=== PATIENT | female | born 1980 | race Caucasian/White ===

== ENCOUNTER 2020-03-02 19:49 | Observation (INO) | payer MEDICARE ==
[2020-03-02] MEDS ORDERED: SODIUM CHLORIDE 0.9% 1,000 ML IV STA (20:14)
--- NOTE | 2020-03-02 20:17 | ED ---
Alcohol HPI - General Chief Complaint: Alcohol Stated Complaint: ETOH Time Seen by Provider: 03/02/20 20:02 Source: patient, family Mode of arrival: ambulatory Limitations: no limitations - History of Present Illness Initial Comments: This a 39-year-old female presents emergency Department with significant other for evaluation of alcohol abuse. Patient states that she's been drinking at least 4 pints a day for last 10 days. Patient states that she has tried to help in the past but has relapsed. Patient states she is looking for help. Patient denies any complaints or homicidal. Patient denies any complaints of abdominal pain. She does admit that she has withdrawal symptoms daily when she does not drink. She has to take 5-10 times a day to help stop her shaking. Patient denies any current nausea vomiting. Patient states that she has drank heavily today and she only continues throughout the night. Patient denies any dysuria hematuria denies any chest pain, shortness breath, fever or chills. - Related Data Allergies Allergy/AdvReac Type Severity Reaction Status Date / Time Penicillins Allergy Rash/Hives Verified 03/02/20 20:01 Review of Systems ROS Statement: Those systems with pertinent positive or pertinent negative responses have been documented in the HPI. ROS Other: All systems not noted in ROS Statement are negative. Past Medical History Past Medical History: No Reported History History of Any Multi-Drug Resistant Organisms: None Reported Past Surgical History: No Surgical Hx Reported Past Psychological History: Anxiety, Bipolar, Depression Smoking Status: Current every day smoker Past Alcohol Use History: Abuse, Daily, Heavy Past Drug Use History: None Reported General Exam Limitations: no limitations General appearance: alert, in no apparent distress, appears intoxicated Head exam: Present: atraumatic, normocephalic, normal inspection Eye exam: Present: normal appearance, PERRL, EOMI. Absent: scleral icterus, conjunctival injection, periorbital swelling ENT exam: Present: normal exam, normal oropharynx, mucous membranes moist Neck exam: Present: normal inspection, full ROM. Absent: tenderness, meningismus, lymphadenopathy Respiratory exam: Present: normal lung sounds bilaterally. Absent: respiratory distress, wheezes, rales, rhonchi, stridor Cardiovascular Exam: Present: normal rhythm, tachycardia, normal heart sounds. Absent: systolic murmur, diastolic murmur, rubs, gallop, clicks GI/Abdominal exam: Present: soft, normal bowel sounds. Absent: distended, tenderness, guarding, rebound, rigid Neurological exam: Present: alert, oriented X3, CN II-XII intact Skin exam: Present: warm, dry, intact, normal color. Absent: rash Course Vital Signs 03/02/20 19:57 Temperature 99.0 F Pulse Rate 121 H Respiratory 16 Rate Blood Pressure 139/88 O2 Sat by Pulse 96 Oximetry Medical Decision Making - Medical Decision Making 39-year-old female presented for alcohol abuse. Patient has acute alcohol intoxication with alcohol level over 350. Patient will be referred alcohol abuse, alcohol withdrawal on Ativan and CIWA - Lab Data Result diagrams: 03/02/20 20:34 03/02/20 20:34 Lab Results 03/02/20 03/02/20 03/02/20 Range/Units 20:34 20:34 20:34 WBC 5.9 (3.8-10.6) k/uL RBC 4.26 (3.80-5.40) m/uL Hgb 13.6 (11.4-16.0) gm/dL Hct 41.3 (34.0-46.0) % MCV 96.9 (80.0-100.0) fL MCH 31.8 (25.0-35.0) pg MCHC 32.8 (31.0-37.0) g/dL RDW 14.0 (11.5-15.5) % Plt Count 137 L (150-450) k/uL Neutrophils % 38 % Lymphocytes % 47 % Monocytes % 5 % Eosinophils % 6 % Basophils % 2 % Neutrophils # 2.3 (1.3-7.7) k/uL Lymphocytes # 2.8 (1.0-4.8) k/uL Monocytes # 0.3 (0-1.0) k/uL Eosinophils # 0.4 (0-0.7) k/uL Basophils # 0.1 (0-0.2) k/uL Sodium 143 (137-145) mmol/L Potassium 3.8 (3.5-5.1) mmol/L Chloride 110 H (98-107) mmol/L Carbon Dioxide 21 L (22-30) mmol/L Anion Gap 12 mmol/L BUN 7 (7-17) mg/dL Creatinine 0.75 (0.52-1.04) mg/dL Est GFR (CKD-EPI)AfAm >90 (>60 ml/min/1.73 sqM) Est GFR (CKD-EPI)NonAf >90 (>60 ml/min/1.73 sqM) Glucose 104 H (74-99) mg/dL Calcium 8.7 (8.4-10.2) mg/dL Magnesium 2.2 (1.6-2.3) mg/dL Total Bilirubin 0.3 (0.2-1.3) mg/dL AST 222 H (14-36) U/L ALT 234 H (4-34) U/L Alkaline Phosphatase 77 (38-126) U/L Total Protein 7.2 (6.3-8.2) g/dL Albumin 4.3 (3.5-5.0) g/dL Lipase 177 (23-300) U/L Urine Color Light Yellow Urine Appearance Cloudy H (Clear) Urine pH 7.0 (5.0-8.0) Ur Specific [place] 1.004 (1.001-1.035) Urine Protein Negative (Negative) Urine Glucose (UA) Negative (Negative) Urine Ketones Negative (Negative) Urine Blood Negative (Negative) Urine Nitrite Negative (Negative) Urine Bilirubin Negative (Negative) Urine Urobilinogen <2.0 (<2.0) mg/dL Ur Leukocyte Esterase Negative (Negative) Urine RBC 1 (0-5) /hpf Urine WBC 1 (0-5) /hpf Ur Squamous Epith Cells 2 (0-4) /hpf Amorphous Sediment Rare H (None) /hpf Urine Bacteria Occasional H (None) /hpf Urine Mucus Rare H (None) /hpf Serum Alcohol 382 H* mg/dL Disposition Clinical Impression: Alcoholic hepatitis, Alcoholic intoxication, Alcohol withdrawal syndrome Disposition: ADMITTED IP TO THIS [facility] Condition: Serious Referrals: Kristi Goodwin DO [Primary Care Provider] - 1-2 days
[2020-03-02] MEDS ORDERED: THIAMINE 200 MG in SODIUM CHLORIDE 0.9% 100 ML IVPB STA (20:19)
[2020-03-02 20:50] LABS: Basophils # (A) 0.1 k/uL (0-0.2); Basophils % (A) 2 %; Eosinophils # (A) 0.4 k/uL (0-0.7); Eosinophils % (A) 6 %; HCT 41.3 % (34.0-46.0); HGB 13.6 gm/dL (11.4-16.0); Lymphocytes # (A) 2.8 k/uL (1.0-4.8); Lymphocytes % (A) 47 %; MCH 31.8 pg (25.0-35.0); MCHC 32.8 g/dL (31.0-37.0); MCV 96.9 fL (80.0-100.0); Mean Platelet Volume 8.6; Monocytes # (A) 0.3 k/uL (0-1.0); Monocytes % (A) 5 %; Neutrophils # (A) 2.3 k/uL (1.3-7.7); Neutrophils % (A) 38 %; Platelet Count 137 k/uL (150-450); RBC 4.26 m/uL (3.80-5.40); WBC 5.9 k/uL (3.8-10.6)
[2020-03-02 21:01] LABS: Amorphous Sediment,Urine Rare /hpf; Appearance,Urine Cloudy (Clear); Bacteria,Urine Occasional /hpf; Bilirubin,Urine Negative (Negative); Blood,Urine Negative (Negative); Color,Urine Light Yellow; Glucose,Urine (UA) Negative (Negative); Ketones,Urine Negative (Negative); Leukocyte Esterase,Urine Negative (Negative); Mucus,Urine Rare /hpf; Nitrite,Urine Negative (Negative); Protein,Urine Negative (Negative); RBC,Urine 1 /hpf (0-5); Specific Gravity,Urine 1.004 (1.001-1.035); Squamous Epithelial Cell,Urine 2 /hpf (0-4); Urobilinogen,Urine <2.0 mg/dL (<2.0); WBC,Urine 1 /hpf (0-5)
[2020-03-02 21:04] LABS: ALT 234 U/L (4-34); AST 222 U/L (14-36); African American GFR (CKD) >90 (>60 ml/min/1.73 sqM); Albumin 4.3 g/dL (3.5-5.0); Alkaline Phosphatase 77 U/L (38-126); Anion Gap 12 mmol/L; Blood Urea Nitrogen 7 mg/dL (7-17); Calcium 8.7 mg/dL (8.4-10.2); Carbon Dioxide 21 mmol/L (22-30); Chloride 110 mmol/L (98-107); Glucose 104 mg/dL (74-99); Magnesium 2.2 mg/dL (1.6-2.3); Non-African American GFR(CKD) >90 (>60 ml/min/1.73 sqM); Potassium 3.8 mmol/L (3.5-5.1); Sodium 143 mmol/L (137-145); Total Bilirubin 0.3 mg/dL (0.2-1.3); Total Protein 7.2 g/dL (6.3-8.2)
[2020-03-02 21:12] LABS: Alcohol 382 mg/dL
[2020-03-02] MEDS ORDERED: NALOXONE 0.4 MG/ML 1 ML VIAL IV PRN (21:57)
[2020-03-02] MEDS ORDERED: ONDANSETRON 4 MG/2 ML VIAL IVP PRN (21:57)
[2020-03-02] MEDS ORDERED: LORazepam 2 MG/ML INJ IV PRN ×2 (21:58)
[2020-03-02] MEDS ORDERED: MIRTAZAPINE 15 MG TAB PO SCH (22:30)
[2020-03-02] MEDS: THIAMINE 100 MG TAB PO SCH (22:36)
[2020-03-02] MEDS: SODIUM CHLORIDE 0.9% 1,000 ML IV SCH (22:42)
[2020-03-02] MEDS: NICOTINE 21MG/24HR PATCH TRANSDERM SCH (22:42)
[2020-03-02] MEDS: busPIRone HCl 5 MG TAB PO SCH (22:42)
[2020-03-02] MEDS: LORazepam 2 MG/ML INJ IV PRN (23:43)
--- NOTE | 2020-03-03 04:20 | P.HPIM ---
History of Present Illness H&P Date: 03/03/20 Chief Complaint: alcohol abuse 39 year old female with alcoholism patient was brought in by family member , seeking help , due to alcohol abuse. Patient is known to have alcoholism and has relapsed, and now presenting seeking help. she claims that she wants to quit however, she starts going through withdrawal and starts shaking for which she starts drinking again . This time she has been drinking 4 pints of hard liquor every day for the past 2 weeks. She otherwise denies any headache chest pain or trouble breathing denies any fevers or chills denies any nausea vomiting abdominal pain denies any diarrhea or urinary symptoms. She is seeking help in hopes that she can quit this habit. Blood work in the ED showed alcohol hepatitis with thrombocytopenia and high alcohol blood level Review of Systems Pertinent positives as noted in HPI. All other systems were reviewed and are negative Past Medical History Past Medical History: No Reported History History of Any Multi-Drug Resistant Organisms: None Reported Past Surgical History: No Surgical Hx Reported Past Psychological History: Anxiety, Bipolar, Depression Smoking Status: Current every day smoker Past Alcohol Use History: Abuse, Daily, Heavy Past Drug Use History: None Reported - Past Family History Family Family Medical History: No Reported History Medications and Allergies Allergies Allergy/AdvReac Type Severity Reaction Status Date / Time Penicillins Allergy Rash/Hives Verified 03/02/20 20:01 Physical Exam Vitals: Vital Signs Temp Pulse Resp BP Pulse Ox 03/02/20 22:10 98.6 F 99 17 115/88 96 03/02/20 19:57 99.0 F 121 H 16 139/88 96 Intake and Output 03/02/20 03/02/20 03/03/20 14:59 22:59 06:59 Other: Weight 87.997 kg Constitutional: No acute distress, conversant, pleasant Eyes: Anicteric sclerae, moist conjunctiva, Pupils equal round reactive to light ENMT: NC/AT Oropharynx clear, no erythema, or exudates Neck: Supple, FROM, no masses, or JVD No carotid bruits No thyromegaly Lungs: Clear to auscultation Clear to percussion Normal respiratory effort, no accessory muscle use Cardiovascular: Heart regular in rate and rhythm, No murmurs, gallops, or rubs No peripheral edema Abdominal: Soft Nontender, no guarding, rebound or rigidity Abdomen moving with respiration Normoactive bowel sounds No hepatomegaly, No splenomegaly No palpable mass No abdominal wall hernia noted Skin: Normal temperature, tone, texture, turgor No induration No subcutaneous nodules No rash, lesions No ulcers Extremities: No digital cyanosis No clubbing Pedal pulses intact and symmetrical Radial pulses intact and symmetrical No calf tenderness Psychiatric: Alert and oriented to person, place and time Appropriate affect fair judgement Neuro Muscles Strength 5/5 in all 4 extremities Sensation to light touch grossly present throughout Cranial nerves II-XII grossly intact No focal sensory deficits Lymphatics: no palpable cervical or supraclavicular , or inguinal lymph nodes Results CBC & Chem 7: 03/02/20 20:34 03/02/20 20:34 Labs: Abnormal Lab Results - Last 24 Hours (Table) 03/02/20 03/02/20 03/02/20 Range/Units 20:34 20:34 20:34 Plt Count 137 L (150-450) k/uL Chloride 110 H (98-107) mmol/L Carbon Dioxide 21 L (22-30) mmol/L Glucose 104 H (74-99) mg/dL AST 222 H (14-36) U/L ALT 234 H (4-34) U/L Urine Appearance Cloudy H (Clear) Amorphous Sediment Rare H (None) /hpf Urine Bacteria Occasional H (None) /hpf Urine Mucus Rare H (None) /hpf Serum Alcohol 382 H* mg/dL Assessment and Plan Assessment: Acute severe alcohol intoxication with alcoholism Monitor for alcohol withdrawal syndrome Acute alcohol hepatitis Thrombocytopenia Depression Plan Aggressive IV fluid hydration Patient counseled to quit alcohol Benzodiazepine per CIWA Thiamine Withdrawal precautions Resume home meds Monitor liver enzymes CODE STATUS: Full code DVT prophylaxis: Heparin subcu 3 times a day Discussed with: Patient, ER Anticipated length of stay less than [address]: Pending clinical course consider discharge to [facility] for rehab A total of 75 minutes was spent on the care of this complex patient more than 50% of the time was spent in counseling and care coordination.
[2020-03-03 04:48] LABS: Basophils % (A) 1 %; Eosinophils # (A) 0.3 k/uL (0-0.7); Eosinophils % (A) 8 %; HCT 38.4 % (34.0-46.0); HGB 12.1 gm/dL (11.4-16.0); Lymphocytes # (A) 1.9 k/uL (1.0-4.8); Lymphocytes % (A) 47 %; MCH 31.3 pg (25.0-35.0); MCHC 31.5 g/dL (31.0-37.0); MCV 99.4 fL (80.0-100.0); Mean Platelet Volume 9.3; Monocytes # (A) 0.2 k/uL (0-1.0); Monocytes % (A) 4 %; Neutrophils # (A) 1.7 k/uL (1.3-7.7); Neutrophils % (A) 40 %; Platelet Count 114 k/uL (150-450); RBC 3.87 m/uL (3.80-5.40); RDW 13.7 % (11.5-15.5); WBC 4.1 k/uL (3.8-10.6)
[2020-03-03] MEDS: LORazepam 2 MG/ML INJ IV PRN ×2 (04:49→08:41)
[2020-03-03 04:59] LABS: ALT 192 U/L (4-34); AST 161 U/L (14-36); African American GFR (CKD) >90 (>60 ml/min/1.73 sqM); Albumin 3.5 g/dL (3.5-5.0); Alkaline Phosphatase 62 U/L (38-126); Anion Gap 6 mmol/L; Blood Urea Nitrogen 6 mg/dL (7-17); Calcium 7.6 mg/dL (8.4-10.2); Carbon Dioxide 22 mmol/L (22-30); Chloride 111 mmol/L (98-107); Glucose 82 mg/dL (74-99); Non-African American GFR(CKD) >90 (>60 ml/min/1.73 sqM); Potassium 3.7 mmol/L (3.5-5.1); Sodium 139 mmol/L (137-145); Total Bilirubin 0.4 mg/dL (0.2-1.3)
[2020-03-03] MEDS: SODIUM CHLORIDE 0.9% 1,000 ML IV SCH (07:01)
[2020-03-03] MEDS ORDERED: PANTOPRAZOLE 40 MG TABLET PO SCH (07:30)
[2020-03-03] MEDS ORDERED: HEPARIN SODIUM,PORCINE 5,000 UNIT/ML 1 ML VIAL SQ SCH (08:00)
[2020-03-03] MEDS: THIAMINE 100 MG TAB PO SCH (08:27)
[2020-03-03] MEDS: NICOTINE 21MG/24HR PATCH TRANSDERM SCH (08:28)
[2020-03-03] MEDS: busPIRone HCl 5 MG TAB PO SCH (08:28)
[2020-03-03] MEDS ORDERED: PNEUMOCOCCAL VACC-PNEUMOVAX 23 25 MCG/0.5 ML VIAL IM ONE (09:02)
[2020-03-03 13:22] VITALS: BP 136/82; PULSE 103; RESP 20; TEMP 97.2
--- NOTE | 2020-03-03 13:28 | P.PN ---
Progress Note - Text Progress Note Date: 03/03/20 Patient was seen and examined. Please refer to H&P for full documentation. Patient reports significant improvement in her symptoms since admission. Her last drink was yesterday at 6 PM. Patient is in no acute distress. She is slightly tachycardic. She is alert and oriented 3. Acute alcohol intoxication with withdrawal Acute alcoholic hepatitis Thrombocytopenia Depression Patient's alcohol withdrawal symptoms are under control at this time. She is alert and oriented 3. Her LFTs are trending down. Platelet count dropped from 137-114 likely dilutional. She'll be continued on CIWA protocol and Ativan as needed. Advised alcohol cessation. Patient advised to ambulate. Likely DC t [facility] or tomorrow.
[2020-03-03] MEDS ORDERED: busPIRone HCl 5 MG TAB PO SCH (16:00)
[2020-03-03] MEDS ORDERED: lamoTRIgine 100 MG TAB PO SCH (21:00)
[2020-03-03] MEDS ORDERED: MIRTAZAPINE 45 MG TABLET PO SCH (21:00)
[2020-03-04] MEDS ORDERED: PANTOPRAZOLE 40 MG TABLET PO SCH (07:30)
--- NOTE | 2020-03-05 08:25 | P.DS ---
Providers Date of admission: 03/02/20 21:50 Expected date of discharge: 03/03/20 Attending physician: Gautam Johnson MD Primary care physician: Kristi Goodwin DO Hospital Course: 39 year old female with alcoholism patient was brought in by family member , seeking help , due to alcohol abuse. Patient is known to have alcoholism and has relapsed, and now presenting seeking help. she claims that she wants to quit however, she starts going through withdrawal and starts shaking for which she starts drinking again . This time she has been drinking 4 pints of hard liquor every day for the past 2 weeks. She otherwise denies any headache chest pain or trouble breathing denies any fevers or chills denies any nausea vomiting abdominal pain denies any diarrhea or urinary symptoms. She is seeking help in hopes that she can quit this habit. Blood work in the ED showed alcohol hepatitis with thrombocytopenia and high alcohol blood level. Patient was placed on CIWA protocol given Ativan as needed. She was placed on withdrawal precautions and her home medications were resumed. She did have a low platelet count of 114 at the time of discharge thought to be related to alcohol abuse. She had elevated liver enzymes a trended down to AST of 161 and ALT of 192 thought to be related to alcoholic hepatitis. Patient was seen. No acute events overnight. Patient reports no chest pain, shortness breath or palpitations. Unsure if she is ready to quit. States that her drinks as well but is more responsible. Patient is in no acute distress. She is slightly tachycardic. She is alert and oriented 3. Acute alcohol intoxication with withdrawal Acute alcoholic hepatitis Thrombocytopenia Depression Patient's alcohol withdrawal symptoms are under control at this time. She is alert and oriented 3. Her LFTs are trending down. Platelet count dropped from 137-114 likely dilutional. She'll be continued on CIWA protocol and Ativan as needed. Advised alcohol cessation. Patient advised to ambulate. Likely DC today. We'll not discharge patient with benzodiazepine as unsure that she will safely take it at home without consuming alcohol. Advised substance abuse program. This complex discharge took about 35 minutes to complete. Patient Condition at Discharge: Stable Plan - Discharge Summary Discharge Rx Participant: No New Discharge Prescriptions: New Pantoprazole [Protonix] 40 mg [facility]. Mirtazapine [Remeron] 45 mg PO HS tab Thiamine [Vitamin B-1] 100 mg PO BID-W/MEALS #60 tab Continue Medroxyprogesterone Acetate [Depo-Provera] 150 mg IM Q84D lamoTRIgine [LaMICtal] 150 mg PO HS busPIRone HCL 5 mg PO TID Pantoprazole Sodium [Protonix] 40 mg PO AC-BRKFST Mirtazapine [Remeron] 45 mg PO HS Discharge Medication List Medroxyprogesterone Acetate [Depo-Provera] 150 mg IM Q84D 03/03/20 [History] Mirtazapine [Remeron] 45 mg PO HS 03/03/20 [History] Mirtazapine [Remeron] 45 mg PO HS tab 03/03/20 [Rx] Pantoprazole Sodium [Protonix] 40 mg PO AC-BRKFST 03/03/20 [History] Pantoprazole [Protonix] 40 mg PO AC-BRKFST #30 tablet. 03/03/20 [Rx] Thiamine [Vitamin B-1] 100 mg PO BID-W/MEALS #60 tab 03/03/20 [Rx] busPIRone HCL 5 mg PO TID 03/03/20 [History] lamoTRIgine [LaMICtal] 150 mg PO HS 03/03/20 [History] Follow up Appointment(s)/Referral(s): Kristi Goodwin DO [Primary Care Provider] - 1-2 days Activity/Diet/Wound Care/Special Instructions: Diet: Regular Follow-up PCP within 2 days of discharge. Stop drinking alcohol. Discharge Disposition: HOME SELF-CARE
== END 2020-03-03 16:30 | disposition home or self-care (01) ==
LOC: EC 19:49 → 5NMEDONC 21:50 → INTOOBSV 21:50 → UNDODISIN 03-03 16:30
PROVIDERS: ADMIT Internal Medicine; ATTEND Internal Medicine
DX: F10.229 Alcohol dependence with intoxication, unspecified (principal); F10.239 Alcohol dependence with withdrawal, unspecified; K70.10 Alcoholic hepatitis without ascites; D69.6 Thrombocytopenia, unspecified; R00.0 Tachycardia, unspecified; F31.9 Bipolar disorder, unspecified; F41.9 Anxiety disorder, unspecified; F17.200 Nicotine dependence, unspecified, uncomplicated; Z79.3 Long term (current) use of hormonal contraceptives; Z79.899 Other long term (current) drug therapy; Z88.0 Allergy status to penicillin; Z71.41 Alcohol abuse counseling and surveillance of alcoholic; Y90.8 Blood alcohol level of 240 mg/100 ml or more
CPT/HCPCS: 96376; 96361 ×2; 96365; 96372; 96375 ×2; 99284; 36415; 80053 ×2; 83690; 83735; 85025 ×2; 81001; G0378 ×2; G0480; S4990; J2060 ×2; J1644; J3411; J2405; 80320